=== PATIENT | female | born 1945 | race Caucasian/White ===

== ENCOUNTER 2021-05-19 01:22 | Outpatient (CLI) | payer OTHER, SELFPAY ==
--- NOTE | 2021-05-19 | DI.US_ITS ---
Exam(s) US BREAST LT COMPLETE US BREAST RT COMPLETE MG MAMMO SCREENING EXAM: MG MAMMO SCREENING AND Bilateral COMPLETE BREAST UTRASOUND CLINICAL HISTORY: SCREENING, DENSE BREAST TISSUE, R92.2. TECHNIQUE: Bilateral full field digital CC and MLO mammographic images were obtained with 3D tomosyn thesis and utilizing computer aided detection (CAD). This mammogram was followed by bilateral complete breast ultrasound. COMPARISON: Prior mammograms dating back to 2017, the most recent being April 2020. FINDINGS: SCREENING MAMMOGRAM: There has been no significant change in the appearance and distribution of the fibroglandular tissue. There are no CAD designations. There are no new spiculated masses nor malignant appearing microcalcification groups. There is no significant architectural distortion nor skin thickening-retraction. BILATERAL COMPLETE BREAST ULTRASOUND: Ultrasound of both breasts was performed, including all 4 quadrants as well as both retroareolar lorraine ons. Both axillary regions were also scanned. There is no evidence of solid or significant cystic lesions in all 4 quadrants of both breasts. Both retroareolar regions are also negative for significant ultrasound findings. There is no adenopathy in either axillary region. IMPRESSION: 1. No radiographic evidence of malignancy. 2. Also negative bilateral complete breast ultrasound BI-RADS Category 1 - Negative Breast Density - Category C - Heterogeneously dense Breast density Category C or D implies that the patient has dense breast tissue. Dense breast tissue can make it harder to find cancer on a mammogram. Dense breast tissue is also associated with an incr eased risk of breast cancer. This information about the result of the mammogram report was provided to the patient to raise their awareness. Use this report when you speak with the patient about their risks for breast cancer, which includes their family history. At that time, you may recommend additional screening tests (Ultrasoun d or MRI) as these tests may add significant information. A negative radiographic report should not delay biopsy if a dominant or clinically suspicious mass is present. Up to ten percent of cancers are not identified on mammography. A negative report may reinforce clinical impression. Adenosis and dense breasts may obscure an underlying neoplasm. False positive reports average 6 to 10%. Patient will receive a letter notifying them of these results.
== END 2021-05-19 01:42 ==
PROVIDERS: Visit Provider Physical Medicine & Rehabilitation
DX: Z12.31 Encounter for screening mammogram for malignant neoplasm of breast (principal)
CPT/HCPCS: 76642; 77063; 77067

== ENCOUNTER → 2022-05-22 00:05 | Outpatient (CLI) | payer MEDICARE, SELFPAY ==
--- NOTE | 2022-05-22 | DI.MAMMO_ITS ---
Exam(s) MAMMO SCREENING EXAM: MAMMO SCREENING CLINICAL HISTORY: SCREENING, TECHNIQUE: Bilateral full field digital CC and MLO mammographic images were obtained with 3D tomosyn thesis and utilizing computer aided detection (CAD). COMPARISON: Available for comparison. FINDINGS: Masses/Architectural Distortion: None seen. Microcalcifications: No suspicious pleomorphic-type are seen. Skin Thickening/Nipple Retraction: None. IMPRESSION: 1. No significant interval change with no specific features of malignancy noted. 2. Unless there is more urgent need, screening mammography is recommended, as per [employer] guidelines. BI-RADS Category 1 - Negative Breast Density - Category C - Heterogeneously dense Breast density category C or D implies that the patient has dense breast tissue. Dense breast tissue is very common and is not abnormal but dense breast tissue can make it harder to find cancer on a ma mmogram. Also, dense breast tissue may increase their breast cancer risk. This information about the result of the mammogram report was provided to the patient to raise their awareness. Use this report when you speak with the patient about their risks for breast cancer, which includes their family hist ory. At that time, you may recommend for more screening tests (Ultrasound or MRI) as they might be us eful based on their risk. A negative radiographic report should not delay biopsy if a dominant or clinically suspicious mass is present. Up to ten percent of cancers are not identified on mammography. A negative report may reinforce clinical impression. Adenosis and dense breasts may obscure an underlying neoplasm. False positive reports average 6 to 10%. Patient will receive a letter notifying them of these results.
== END ==
DX: Z12.31 Encounter for screening mammogram for malignant neoplasm of breast (principal)
CPT/HCPCS: 77063; 77067

== ENCOUNTER 2025-04-25 10:16 | Emergency (ER) | payer MEDICARE, SELFPAY ==
[2025-04-25 10:32] VITALS: TEMP 36.4
--- NOTE | 2025-04-25 11:08 | ED.GENADUL_ITS ---
Discharge Plan Disposition Patient Disposition: Home Condition: Good Discharge Details Clinical Impression: Acute UTI Primary Care Provider: Unknown,Unknown ED Provider: Lyn Kahn Home Meds and New Rx's Prescriptions: New sulfamethoxazole-trimethoprim [Bactrim DS] 800-160 mg tablet 1 tab PO BID 3 Days Qty: 6 0RF Continued metoprolol succinate 25 mg tablet extended release 24 hr 25 mg PO DAILY calcium phos,dibas-vitamin D3 77-400 mg-unit tablet PO Discharge Instructions Instructions: Urinary Tract Infection, Adult ED Additional Instructions: As we discussed, your urine and history is concerning for a likely UTI. While the culture is pending, I do feel that is appropriate to treat you with antibiotics. Please take the antibiotics as prescribed. Even if some symptoms improve, please take the entire course. Please continue to encourage hydration as we discussed. I have referred you to a local primary care and vascular follow-up in the next 2 weeks. However, if you develop any fever/chills, back pain or other new/worsening symptoms please seek care urgently once again. Discharge Data Discharge Date/Time-TO BE ENTERED AT DEPARTURE: 04/25/25 12:30 HPI General Date/Time Provider Initiated Documentation: 04/25/25 10:38 . Limitations to Documentation: no limitations . Information obtained by: patient and RN notes reviewed . History of Present Illness 80 year old F presents to the emergency department with the chief complaint of increased urinary frequency, urgency, urinary discomfort, described as mild, Quality is described as other (reports some pressure in darryn bladder), Patient reports no radiation. Patient started experiencing this da y(s) (5) and it has been constant. No relieving factors improve symptom(s), No exacerbating factors reported . Patient notes denies confusion, cough, fever/chills, loss of appetite, malaise, nausea/vomiting, rash, shortness of breath and weakness. Patient did receive the following treatments prior to arrival, none Related Data Home Medications ?Medication ?Instructions ?Recorded ?Confirmed calcium phosphate,dibasic 77 tab PO 04/25/25 mg-vitamin D3 400 unit tablet metoprolol succinate 25 mg 25 mg PO DAILY 04/25/2507/12 tablet,extended release 24 hr sulfamethoxazole 800 1 tab PO BID 3 days #6 tabs 04/25/25 mg-trimethoprim 160 mg tablet (Bactrim DS) Previous Rx's ?Medication ?Instructions ?Recorded sulfamethoxazole 800 1 tab PO BID 3 days #6 tabs 04/25/25 mg-trimethoprim 160 mg tablet (Bactrim DS) Allergies Allergy/AdvReac Type Severity Reaction Status Date / Time No Known Allergies Allergy Unverified 04/25/25 10:33 General Stated Complaint: Urinary JUAN: 3 Review of Systems Constitutional Constitutional: Reports as per HPI, Denies chills, Denies fever(s) and Denies poor appetite Cardiovascular Cardiovascular: Denies chest pain Respiratory Respiratory: Denies cough Gastrointestinal Gastrointestinal: Denies abdominal pain, Denies change in bowel habits, Denies nausea and Denies vomiting Genitourinary Genitourinary: Reports as per HPI Musculoskeletal Musculoskeletal: Reports as per HPI and Denies back pain Integumentary/Breasts Skin/Breast: Reports as per HPI and Denies rash Exam Const General: cooperative, healthy appearing, comfortable, no acute distress, well developed and well groomed Nutritional Appearance: average body habitus and well nourished Orientation: alert and awake Resp Effort & Inspection: normal respiratory effort and no respiratory distress Auscultation: clear to auscultation bilaterally, no rales, no rhonchi and no wheezes Cardio Rate: regular rate Rhythm: regular rhythm Heart Sounds: S1 normal and S2 normal GI Inspection: normal to inspection Palpation: soft and nontender Back/Spine/Pelvis Back: no CVA tenderness Skin General skin exam: no rashes or lesions noted (few, small bugbites to right medial thigh) Trauma: no lacerations or abrasions Neuro General: patient alert and patient awake Cognition: normal cognition Speech: speech normal Gait: normal gait Course Vital Signs Vital signs: Vital Signs Temperature 36.4 C L 04/25/25 10:32 Temperature 36.4 C L 04/25/25 10:32 Pain Level 3 04/25/25 10:29 Medical Decision Making Patient is a pleasant 80-year-old female presenting with chief complaint of u rinary symptoms. She reports about 5 days ago she developed increased urgency and a pressure. States that she is having some slight discomfort is not the significant burning that she has had when she has had UTIs in the past although she reports it has been several years since her last UTI. She denies any fevers or chills. Denies any back pain. Denies any significant abdominal discomfort. No vaginal discharge. No change in bowel habits. On exam, patient appears nontoxic. She hemodynamically stable. Afebrile. No fevers at home. She has no CVA tenderness. Abdomen is benign. She did report that she had a few bug bites in the upper inner thighs which I did look at these. To be healing well, consistent with a true bug bite no evidence to suggest herpes or other more concerning lesions. Primarily concern at this time for UTI based on the patient's description and history, awaiting urinalysis. No evidence at this time to suggest sepsis, pyelonephritis, nephrolithiasis, obstr uctive pathology or other more emergent pathology. UA signficant for moderate blood and leukocyte esterace. While negative for nitrites, still concerned for UTI in clinical setting. Encouraged hydration- she has been having more hydration over recent days. Will begin on abx. Return precautions discussed. She does not have local PCP but is here for the summer months, have asked for f/u with PCP and assistance [facility] establishing care. All of her quesitons and cocnerns were addressed, she is in agreement with this plan. PFSH All Active Problems (Updated 04/25/25 @ 12:02 by ELFEGO Salazar) Acute UTI (Acute) Social History Smoking/Tobacco Use Status: Never Smoking risk assessment performed?: Yes Alcohol Intake: current Alcohol Intake frequency: 0-2 drinks per day Substance use type: does not use Housing: apartment Do you feel safe at home: Yes Do you feel safe in your relationship?: Yes
[2025-04-25 11:26] LABS: Glucose Negative (Negative)
[2025-04-25 11:44] LABS: RBC 0-2 HPF (0-2); WBC 0-2 HPF (0-5)
[2025-04-25 11:45] LABS: C & S Indicated? No
[2025-04-25 12:17] VITALS: BP 153/77; PULSE 66; RESP 12; O2SAT 97
== END 2025-04-25 12:30 | disposition home or self-care (01) ==
PROVIDERS: Emergency Provider Physician Assistant
DX: N39.0 Urinary tract infection, site not specified (principal)
CPT/HCPCS: 99283; 81003; 81015; 87086